=== PATIENT | female | born 1950 | race Caucasian/White ===

== ENCOUNTER → 2022-08-28 11:18 | Outpatient (BNVA) | payer OTHER, SELFPAY | PROVIDERS: Visit Provider Physician Assistant | DX: M25.511 Pain in right shoulder (principal) | CPT/HCPCS: 73030; 99204 ==

== ENCOUNTER → 2022-09-04 14:05 | Outpatient (BNVA) | payer OTHER, SELFPAY | PROVIDERS: Visit Provider Physician Assistant | DX: M25.511 Pain in right shoulder (principal) | CPT/HCPCS: 99213 ==

== ENCOUNTER 2023-02-24 09:22 | Emergency (ER) | payer MEDICARE, SELFPAY ==
--- NOTE | ~2023-02-24 | XR_ITS ---
EXAMINATION: XR HAND, LEFT CLINICAL INFORMATION: Swelling COMPARISON: None available. TECHNIQUE: PA, lateral, and oblique views of the left hand. FINDINGS: The bones are diffusely demineralized. The bones are intact. No fracture. There is marked degenerative change of the first carpometacarpal joint. There is degenerative change of the DIP joints of the fingers and the PIP joint of the little finger. There is mild degenerative change of the first metacarpophalangeal joint. There is calcification in the region of the fibrocartilage complex consistent with CPPD (calcium pyrophosphate deposition disease). XR/XR hand LT min 3V IMPRESSION: 1. Multiple sites of degenerative change. 2. Calcification in the region of the fibrocartilage complex consistent with CPPD.
[2023-02-24 09:39] VITALS: BP 150/85; PULSE 80; RESP 16; TEMP 36.7; O2SAT 99; BMI 35.3
--- NOTE | 2023-02-24 14:02 | ED_ITS ---
HPI - Extremity Problem General Chief complaint: Extremity Problem Stated complaint: l hand swelling and pain Time Seen by Provider: 02/24/23 13:46 Source: patient Mode of arrival: ambulatory Limitations: no limitations History of Present Illness HPI Narrative: this is a 72-year-old female presenting with atraumatic left wrist pain and swelling that started 4 days ago has been progressively worsening. Patient st ates it is painful with range of motion and palpation and better at rest. She states that she has tried icing the area and taking ibuprofen with little to no relief. Patient has no known history of gout or pseudogout. Denies trauma to the area. Denies numbness and tingling, fevers, chills, overlying skin changes, nausea, vomiting, abdominal pain, chest pain. Not on anticoagulation. No history of DVT or PE. Denies long travel. Surgeries. Related Data Previous Rx's Medication Instructions Recorded prednisone 20 mg tablet 40 mg (2 x 20 mg) PO DAILY 5 days 02/24/23 #10 tabs Allergies Allergy/AdvReac Type Severity Reaction Status Date / Time prednisone AdvReac Intermediate GI upset Verified 02/24/23 14:01 Review of Systems Review of Systems: Constitutional : No Weight loss, No Fever, No Chills, No Fatigue, No Malaise ENT/Mouth : No sore throat, No Rhinorrhea Eyes: No Eye Pain, No Swelling, No Redness Cardiovascular : No Chest Pain, No SOB, No Dyspnea on Exertion, No Orthopnea, No Edema, No Palpitations Respiratory : No Cough, No Sputum, No Wheezing Gastrointestinal : No Nausea, No Vomiting, No Diarrhea, No Constipation, No abdominal Pain, No Hematochezia, No Melena Genitourinary : No Dysuria, No Urinary Frequency, No Hematuria, Musculoskeletal : + joint pain, No Myalgias, + Joint Swelling Skin : No Skin Lesions, No rash Neuro : No Weakness, No Numbness, No Dizziness, No Headache Psych : No Anxiety/Panic, No Depression All other systems reviewed and are negative Yes all other systems are reviewed and are negative [facility] Past Medical History Attestation statement: The following information was validated with the patient. Source: old records reviewed and nursing notes reviewed Social History Social History Advance Directives: No Advance Directives Information Provided: Yes Physical Exam Vital Signs: Vital Signs: Last Vital Signs Temp 98.1 F 02/24/23 09:39 Pulse 80 02/24/23 09:39 Resp 16 02/24/23 09:39 BP 150/85 H 02/24/23 09:39 Pulse Ox 99 02/24/23 09:39 O2 Del Method Room Air 02/24/23 09:39 BMI result Body Mass Index 35.3 Vital signs stable Appearance: Alert.? Oriented X3.? No acute distress.? Head: Normocephalic, atraumatic, no step-offs or deformities Eyes: Pupils equal, round and reactive to light.? CVS: Normal heart rate and rhythm.? Pulses normal.? Respiratory: No respiratory distress.? Breath sounds normal.? Skin: Skin warm and dry.? Normal skin color.? Normal skin turgor.? Extremities: 5/5 strength to bilateral upper and lower extremities + ttp to l wrist throughout w/ edema overlying wrist and into l hand dorsal aspect > palmar aspect. 2+ radial pulses = and b/l. No wrist drop. Normal sensation distally. No overlying skin changes. 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 No motor deficit.? No sensory deficit. CN 2-12 intact Medical Decision Making Medical Decision Making [facility] Narrative: [id number] 72-year-old female presents with left wrist pain since worsening physical exam significant for 5/5 strength to bilateral upper and lower extremities + ttp to l wrist throughout w/ edema overlying wrist and into l hand dorsal aspect > palmar aspect. 2+ radial pulses = and b/l. No wrist drop. Normal sensation distally. No overlying skin changes. Normal hand [employer] however L<R (d/t pain) full rom to b/l wrist however L wrist w/ some discomfort most likely gout versus pseudogout versus inflammatory arthritis. Unlikely fracture, dislocation, threat to Cano, neurovascular compromise, arterial or venous occlusion, bursitis, tendonitis, cellulitis or septic joint Plan- xray ordered from triage showing multiple sites of degenerative changes supporting a likely inflammatory arthritis versus gout versus pseudogout. X-ray also showing calcification in the region of the fibrocartilage complex consistent with CPPD, again likely gout versus pseudogout with superimposed inflammatory arthritis. Explained to patient usually treat this with 5 days of high-dose prednisone, she tells me that she has taken prednisone in the past and it causes her some GI upset, and sometimes she feels like she is going crazy. However no respiratory complaints at this medication or signs of anaphylaxis. Will give her her 1st dose here make sure she tolerates it well and discharge her home with same. Differential Diagnosis Differential Diagnoses: The differential diagnosis associated with the presentation includes most likely gout versus pseudogout versus inflammatory arthritis. Unlikely fracture, dislocation, threat to Cano, neurovascular compromise, arterial or venous occlusion, bursitis, tendonitis, cellulitis or septic joint Admission/Observation Consideration of admission/observation: Escalation of care including admission/observation considered unlikely Independent Interpretation I performed an independent interpretation of an: Plain X-Ray ( XR/XR hand LT min 3V IMPRESSION: 1. Multiple sites of degenerative change. 2. Calcification in the region of the fibrocartilage complex consistent with CPPD.) Radiology Impression Discussion of test interpretation with radiology: I have reviewed the radiologist's reading. Core Measures AMI core measures followed: Yes Measure exclusions: not indicated Critical Care Time Critical Care Time Critical Care Time: No Discharge Plan Discharge Clinical Impression: Inflammatory arthritis, Pseudogout Patient Disposition: Home, Self-Care Instructions: Osteoarthritis (ED), Pseudogout (ED) Additional Instructions: Take your medications as prescribed. If you were prescribed antibiotics today, it is important that you take your medication to their entirety, do not skip any doses, do not finish them early. Follow-up with your primary care provider this week. Return to the emergency department with new or worsening symptoms. Such as fevers, chills, chest pain, shortness of breath, nausea, vomiting, dizziness, headache, vision changes, lethargy In case of emergency call 911 XR/XR hand LT min 3V IMPRESSION: 1. Multiple sites of degenerative change. 2. Calcification in the region of the fibrocartilage complex consistent with CPPD. Prescriptions: New prednisone 20 mg tablet 40 mg PO DAILY 5 Days Qty: 10 0RF Referrals: Radhames Wade MD [Primary Care Provider] - 2 days [facility] [Provider Group] - 1 week
--- NOTE | 2023-02-24 14:09 | PC.NURSE ---
Zoraida WEST authorizes to give prednisone to pt
[2023-02-24] MEDS: predniSONE 20 MG TABLET 40 MG PO (14:10)
== END 2023-02-24 14:40 | disposition home or self-care (01) ==
PROVIDERS: Emergency Provider Student in an Organized Health Care Education/Training Program; PCP Family Medicine
DX: M10.032 Idiopathic gout, left wrist (principal); M19.032 Primary osteoarthritis, left wrist; M19.031 Primary osteoarthritis, right wrist
CPT/HCPCS: 73130; 99282; 99283

== ENCOUNTER 2023-11-03 11:50 | Day surgery (SDC) | payer MEDICARE, SELFPAY ==
[2023-10-28 07:54] VITALS: BMI 36.7
--- NOTE | 2023-10-31 09:36 | HO.ANESPROP2 ---
Documented by User: Birgit Moon NP 10/31/23 09:37 HPI - Anesthesia Eval Consult details Narrative: 72yo F for Left Cataract Extraction IOL Insertion PCP cleared No prev cataract on record [facility] Past Medical History Medical History (Updated 10/28/23 @ 07:44 by Kasey Omalley RN) Eyelid retraction of both eyes Restless leg syndrome Pre-diabetes Panic attacks Osteoarthritis Obesity Depression Hyperlipidemia TIA (transient ischemic attack) Cerebral vascular accident Asthma Allergic rhinitis Surgical History Surgical History (Updated 10/28/23 @ 07:44 by Kasey Omalley RN) Hx of hysterectomy, total Hx of abdominal hysterectomy History of 2 sections History of repair of rotator cuff Hx laparoscopic cholecystectomy H/O colonoscopy Social History Social History Are you a primary career guidance counselor to a significant other at home: No Patient Tobacco Use Status: Never used Tobacco Use of substances other than those prescribed or required for medical reasons: No Advance Directives: No Advance Directives Information Provided: Yes Advance Directives on File: No Recently lost weight without trying: No Eating poorly because of decreased appetite: No Nutrition Risks: No Nutritional Risk Patient : No : No Meds Allergies Allergy/AdvReac Type Severity Reaction Status Date / Time prednisone AdvReac Intermediate GI upset Verified 02/24/23 14:01 naproxen AdvReac Vomiting Verified 10/28/23 07:53 Home Medications ?Medication ?Instructions ?Recorded ?Confirmed ?Last Taken ?Type acetaminophen 500 mg capsule 1,000 mg PO DAILY 10/28/23 10/28/23 Unknown History albuterol sulfate 90 mcg/actuation 1 puff inhalation Q4-5H PRN 10/28/23 10/28/23 Unknown History aerosol inhaler (Ventolin HFA) Shortness Of Breath Or Wheezing aspirin 81 mg tablet,delayed 81 mg PO DAILY 10/28/23 10/28/23 Unknown History release budesonide 180 mcg/actuation 1 inh inhalation BID PRN wheezing 10/28/23 10/28/23 Unknown History breath activated powder inhaler (Pulmicort Flexhaler) fluoxetine 40 mg capsule 40 mg PO DAILY 10/28/23 10/28/23 Unknown History lorazepam 1 mg tablet 1 mg PO DAILY PRN panic attack 10/28/23 10/28/23 Unknown History pravastatin 40 mg tablet 40 mg PO DAILY 10/28/23 10/28/23 Unknown History triamcinolone acetonide 55 mcg 1 spray intranasal DAILY 10/28/23 10/28/23 Unknown History nasal spray aerosol (Nasacort) Exam Height,Weight and Vital Signs: Height 4 ft 10.7 in Weight 81.5 kg Assessment and Plan Assessment Anesthesia Assessment: Chart Reviewed Documented by User: Luna Beavers MD 11/03/23 13:30 [facility] Past Medical History Medical History (Updated 10/28/23 @ 07:44 by Kasey Omalley RN) Eyelid retraction of both eyes Restless leg syndrome Pre-diabetes Panic attacks Osteoarthritis Obesity Depression Hyperlipidemia TIA (transient ischemic attack) Cerebral vascular accident Asthma Allergic rhinitis Family History Family history of problems with anesthesia: No Surgical History Surgical History (Updated 10/28/23 @ 07:44 by Kasey Omalley RN) Hx of hysterectomy, total Hx of abdominal hysterectomy History of 2 sections History of repair of rotator cuff Hx laparoscopic cholecystectomy H/O colonoscopy History of Problems with Anesthesia: No Social History Social History Are you a primary career guidance counselor to a significant other at home: No Patient Tobacco Use Status: Never used Tobacco Use of substances other than those prescribed or required for medical reasons: No Advance Directives: No Advance Directives Information Provided: Yes Advance Directives on File: No Recently lost weight without trying: No Eating poorly because of decreased appetite: No Nutrition Risks: No Nutritional Risk Patient : No : No Meds Allergies Allergy/AdvReac Type Severity Reaction Status Date / Time prednisone AdvReac Intermediate GI upset Verified 02/24/23 14:01 naproxen AdvReac Vomiting Verified 10/28/23 07:53 Home Medications ?Medication ?Instructions ?Recorded ?Confirmed ?Last Taken ?Type acetaminophen 500 mg capsule 1,000 mg PO DAILY 10/28/23 10/28/23 Unknown History albuterol sulfate 90 mcg/actuation 1 puff inhalation Q4-5H PRN 10/28/23 10/28/23 Unknown History aerosol inhaler (Ventolin HFA) Shortness Of Breath Or Wheezing aspirin 81 mg tablet,delayed 81 mg PO DAILY 10/28/23 10/28/23 Unknown History release budesonide 180 mcg/actuation 1 inh inhalation BID PRN wheezing 10/28/23 10/28/23 Unknown History breath activated powder inhaler (Pulmicort Flexhaler) fluoxetine 40 mg capsule 40 mg PO DAILY 10/28/23 10/28/23 Unknown History lorazepam 1 mg tablet 1 mg PO DAILY PRN panic attack 10/28/23 10/28/23 Unknown History pravastatin 40 mg tablet 40 mg PO DAILY 10/28/23 10/28/23 Unknown History triamcinolone acetonide 55 mcg 1 spray intranasal DAILY 10/28/23 10/28/23 Unknown History nasal spray aerosol (Nasacort) Exam Airway Mallampati Class: II (missing a couole teeth) TM Dist: >3cm Neck ROM: Full Heart: rrr Lungs: cta Assessment and Plan Assessment Anesthesia Assessment: Anesthesia Plan Discussed Final Anesthetic Review Family History of Problems with Anesthesia: No History of Problems with Anesthesia: No NPO: Yes ASA Class: II Final Preanesthetic Review: No Changes in Pt Med Stat, Meds/Allgs Chart Reviewed and Consent Obtained/Reviewed Patient Risk: Low Procedure Risk: Low Anesthetic Plan Anesthetic Plan: MAC: Disposition: Standard PACU
[2023-11-03] MEDS: Tetracaine HCl/PF 0.5% Oph Sol 4 ML DROPS 1 DROP EYE-LEFT (13:10)
[2023-11-03] MEDS: Cyclopentolate 1 % Ophth Sol 2 ML DRPBTL 1 DROP EYE-LEFT ×3 (13:11→13:27)
[2023-11-03] MEDS: Tropicamide 1 % Ophth Sol 3 ML BTL 1 DROP EYE-LEFT ×3 (13:13→13:29)
[2023-11-03] MEDS: Ketorolac Tromethamine 0.5% Op 10 ML DROPS 1 DROP EYE-LEFT ×3 (13:15→13:31)
[2023-11-03] MEDS: Phenylephrine HCL 2.5% Oph SoL 2 ML BOTTLE 1 DROP EYE-LEFT ×3 (13:17→13:33)
[2023-11-03] MEDS: Lactated Ringers 500 ML 50 ML IV (13:30)
--- NOTE | 2023-11-03 14:45 | MHC.SHP ---
Pre-Procedural Eval Section A - 24 Hr Update-Section A only Date of Service: 11/03/23 The patient is an INPATIENT: No Changes since office visit: No Cold of Flu in the past 2 weeks, No New Medical Problems, No Changes in Medication and No Patient answered all questions The patient has been examined within 24 hours of the surgical procedure. The History & Physical has been completed within 30 days and I have reviewed it.: Yes Section B - Complete if H&P > 30 days Chief Complaint: Age-related nuclear cataract, left eye Allergies: Allergies Allergy/AdvReac Type Severity Reaction Status Date / Time prednisone AdvReac Intermediate GI upset Verified 02/24/23 14:01 naproxen AdvReac Vomiting Verified 10/28/23 07:53 Plan Diagnosis/Plan: Unchanged I have reviewed the history and physical and performed a pertinent physical examination on my patient. No changes have occurred unless specified. Time Spent With Patient Time: Total time managing care of this patient today ____ minutes.
--- NOTE | 2023-11-03 14:45 | HO.PNOPHT ---
Ophthalmology Procedure Procedure Date of Service: 11/03/23 Ophthalmology Viscoelastic: Healon Duet Dual Pack Pro Ophthalmology Lenses: IOL Acrysof MP - [id number] (27) Procedure Notes: PREOPERATIVE DIAGNOSIS: Decreased visual acuity left eye secondary to cataract POSTOPERATIVE DIAGNOSIS: Same PROCEDURE: Left cataract extraction with intraocular lens insertion SURGEON: Peter Taylor M.D. ANESTHESIA: Topical/MAC ESTIMATED BLOOD LOSS: None COMPLICATIONS: None After obtaining informed consent, the patient was brought to the operation room suite and placed in the supine position. After adequate sedation per anesthesia, topical drops of Tetracaine were given to the left eye. The eye was then prepped and draped in the usual sterile fashion. The operating room microscope was then positioned over the operative eye and a lid speculum placed. A paracentesis was created. Viscoelastic was then instilled into the anterior chamber. A three plane incision was then created temporally, utilizing a 2.85 mm keratome. Capsulotomy forceps were then utilized to create a circular tear capsulotomy. Hydrodissection and hydrodelineation were carried out until adequate mobilization of the nucleus occurred. Phacoemulsification was then utilized to remove the dense central nucleus followed by removal of the cortical material utilizing the automated aspiration irrigation unit. Viscoat elastic was instilled into the posterior capsular bag followed by placement of a posterior chamber intraocular lens without difficulty. The residual Viscoat elastic was then removed utilizing the automated IA machine. The wound was check and found to be watertight. The patient tolerated the procedure well and the lid speculum was removed. Intracameral injection of Vigamox 0.1 mL followed by a subtenon injection of Kenalog-40 0.2 mL were administered. The patient will be seen in the a.m.
[2023-11-03 15:13] VITALS: BP 153/80; PULSE 73; RESP 18; TEMP 36.4; O2SAT 97
== END 2023-11-03 15:30 | disposition home or self-care (01) ==
PROVIDERS: PCP Family Medicine; Visit Provider Ophthalmology
PROC: (CPT 66985; principal; 2023-11-03 10:00)
DX: H25.12 Age-related nuclear cataract, left eye (principal); H52.4 Presbyopia; H35.033 Hypertensive retinopathy, bilateral; H04.123 Dry eye syndrome of bilateral lacrimal glands; Z79.899 Other long term (current) drug therapy; I10 Essential (primary) hypertension; E78.00 Pure hypercholesterolemia, unspecified; J45.909 Unspecified asthma, uncomplicated; F41.9 Anxiety disorder, unspecified; Z86.73 Personal history of transient ischemic attack (TIA), and cerebral infarction without residual deficits; Z88.4 Allergy status to anesthetic agent; Z88.6 Allergy status to analgesic agent; Z88.8 Allergy status to other drugs, medicaments and biological substances; Z79.51 Long term (current) use of inhaled steroids; H18.413 Arcus senilis, bilateral
CPT/HCPCS: 66984; J2250; J3010; J3301; V2630

== ENCOUNTER 2023-11-17 07:19 | Day surgery (SDC) | payer MEDICARE, SELFPAY ==
[2023-10-28 08:02] VITALS: BMI 36.7
--- NOTE | 2023-11-13 13:30 | HO.ANESPROP2 ---
Documented by User: Birgit Moon NP 11/13/23 13:32 HPI - Anesthesia Eval Consult details Narrative: 72yo F for Right Cataract Extraction IOL Insertion Left eye 11/03/23: Fent 50, Midaz 2 PMF[facility] Past Medical History Medical History Eyelid retraction of both eyes Restless leg syndrome Pre-diabetes Panic attacks Osteoarthritis Obesity Depression Hyperlipidemia TIA (transient ischemic attack) Cerebral vascular accident Asthma Allergic rhinitis Family History Family history of problems with anesthesia: No Surgical History Surgical History Hx of hysterectomy, total Hx of abdominal hysterectomy History of 2 sections History of repair of rotator cuff Hx laparoscopic cholecystectomy H/O colonoscopy History of Problems with Anesthesia: No Social History Social History Are you a primary director day care center to a significant other at home: No Patient Tobacco Use Status: Never used Tobacco Use of substances other than those prescribed or required for medical reasons: No Advance Directives: No Advance Directives Information Provided: Yes Advance Directives on File: No Recently lost weight without trying: No Eating poorly because of decreased appetite: No Nutrition Risks: No Nutritional Risk Patient : No : No Meds Allergies Allergy/AdvReac Type Severity Reaction Status Date / Time prednisone AdvReac Intermediate GI upset Verified 02/24/23 14:01 naproxen AdvReac Vomiting Verified 10/28/23 07:53 Home Medications ?Medication ?Instructions ?Recorded ?Confirmed ?Last Taken ?Type acetaminophen 500 mg capsule 1,000 mg PO DAILY 10/28/23 10/28/23 Unknown History albuterol sulfate 90 mcg/actuation 1 puff inhalation Q4-5H PRN 10/28/23 10/28/23 Unknown History aerosol inhaler (Ventolin HFA) Shortness Of Breath Or Wheezing aspirin 81 mg tablet,delayed 81 mg PO DAILY 10/28/23 10/28/23 11/17/23 History release budesonide 180 mcg/actuation 1 inh inhalation BID PRN wheezing 10/28/23 10/28/23 Unknown History breath activated powder inhaler (Pulmicort Flexhaler) fluoxetine 40 mg capsule 40 mg PO DAILY 10/28/23 10/28/23 11/17/23 History lorazepam 1 mg tablet 1 mg PO DAILY PRN panic attack 10/28/23 10/28/23 Unknown History pravastatin 40 mg tablet 40 mg PO DAILY 10/28/23 10/28/23 Unknown History triamcinolone acetonide 55 mcg 1 spray intranasal DAILY 10/28/23 10/28/23 Unknown History nasal spray aerosol (Nasacort) Exam Height,Weight and Vital Signs: Height 4 ft 10.7 in Weight 81.5 kg Assessment and Plan Assessment Anesthesia Assessment: Chart Reviewed Final Anesthetic Review Family History of Problems with Anesthesia: No History of Problems with Anesthesia: No Documented by User: Roxana Lombardi MD 11/17/23 08:56 [facility] Past Medical History Medical History Eyelid retraction of both eyes Restless leg syndrome Pre-diabetes Panic attacks Osteoarthritis Obesity Depression Hyperlipidemia TIA (transient ischemic attack) Cerebral vascular accident Asthma Allergic rhinitis Surgical History Surgical History Hx of hysterectomy, total Hx of abdominal hysterectomy History of 2 sections History of repair of rotator cuff Hx laparoscopic cholecystectomy H/O colonoscopy Social History Social History Are you a primary director day care center to a significant other at home: No Patient Tobacco Use Status: Never used Tobacco Use of substances other than those prescribed or required for medical reasons: No Advance Directives: No Advance Directives Information Provided: Yes Advance Directives on File: No Recently lost weight without trying: No Eating poorly because of decreased appetite: No Nutrition Risks: No Nutritional Risk Patient : No : No Meds Allergies Allergy/AdvReac Type Severity Reaction Status Date / Time prednisone AdvReac Intermediate GI upset Verified 02/24/23 14:01 naproxen AdvReac Vomiting Verified 10/28/23 07:53 Home Medications ?Medication ?Instructions ?Recorded ?Confirmed ?Last Taken ?Type acetaminophen 500 mg capsule 1,000 mg PO DAILY 10/28/23 10/28/23 Unknown History albuterol sulfate 90 mcg/actuation 1 puff inhalation Q4-5H PRN 10/28/23 10/28/23 Unknown History aerosol inhaler (Ventolin HFA) Shortness Of Breath Or Wheezing aspirin 81 mg tablet,delayed 81 mg PO DAILY 10/28/23 10/28/23 11/17/23 History release budesonide 180 mcg/actuation 1 inh inhalation BID PRN wheezing 10/28/23 10/28/23 Unknown History breath activated powder inhaler (Pulmicort Flexhaler) fluoxetine 40 mg capsule 40 mg PO DAILY 10/28/23 10/28/23 11/17/23 History lorazepam 1 mg tablet 1 mg PO DAILY PRN panic attack 10/28/23 10/28/23 Unknown History pravastatin 40 mg tablet 40 mg PO DAILY 10/28/23 10/28/23 Unknown History triamcinolone acetonide 55 mcg 1 spray intranasal DAILY 10/28/23 10/28/23 Unknown History nasal spray aerosol (Nasacort) Exam Airway Mallampati Class: II TM Dist: >3cm Neck ROM: Full Heart: RRR Lungs: CTA Assessment and Plan Assessment Anesthesia Assessment: Anesthesia Plan Discussed Final Anesthetic Review NPO: Yes ASA Class: III Final Preanesthetic Review: Meds/Allgs Chart Reviewed, Consent Obtained/Reviewed and Anes Risks/Benef Reviewed Patient Risk: Intermediate Procedure Risk: Low Anesthetic Plan Anesthetic Plan: MAC: Disposition: Standard PACU
[2023-11-17 08:37] VITALS: BP 159/71; PULSE 89; RESP 16; TEMP 36.8; O2SAT 96
[2023-11-17] MEDS: Tetracaine HCl/PF 0.5% Oph Sol 4 ML DROPS 1 DROP EYE-RIGHT (08:44)
[2023-11-17] MEDS: Cyclopentolate 1 % Ophth Sol 2 ML DRPBTL 1 DROP EYE-RIGHT ×3 (08:48→08:53)
[2023-11-17] MEDS: Lactated Ringers 500 ML 50 ML IV (08:48)
[2023-11-17] MEDS: Tropicamide 1 % Ophth Sol 3 ML BTL 1 DROP EYE-RIGHT ×3 (08:49→08:53)
[2023-11-17] MEDS: Phenylephrine HCL 2.5% Oph SoL 2 ML BOTTLE 1 DROP EYE-RIGHT ×3 (08:50→08:55)
[2023-11-17] MEDS: Ketorolac Tromethamine 0.5% Op 10 ML DROPS 1 DROP EYE-RIGHT ×3 (08:50→08:54)
--- NOTE | 2023-11-17 09:27 | MHC.SHP ---
Pre-Procedural Eval Section A - 24 Hr Update-Section A only Date of Service: 11/17/23 The patient is an INPATIENT: No Changes since office visit: No Cold of Flu in the past 2 weeks, No New Medical Problems, No Changes in Medication and No Patient answered all questions The patient has been examined within 24 hours of the surgical procedure. The History & Physical has been completed within 30 days and I have reviewed it.: Yes Section B - Complete if H&P > 30 days Chief Complaint: Age-related nuclear cataract, right eye Allergies: Allergies Allergy/AdvReac Type Severity Reaction Status Date / Time prednisone AdvReac Intermediate GI upset Verified 02/24/23 14:01 naproxen AdvReac Vomiting Verified 10/28/23 07:53 Plan Diagnosis/Plan: Unchanged I have reviewed the history and physical and performed a pertinent physical examination on my patient. No changes have occurred unless specified. Time Spent With Patient Time: Total time managing care of this patient today ____ minutes.
--- NOTE | 2023-11-17 09:28 | P.PCNO_ITS ---
Ophthalmology Procedure Procedure Date of Service: 11/17/23 Ophthalmology Viscoelastic: Healon Duet Dual Pack Pro Ophthalmology Lenses: IOL Acrysof MP - [id number] (26.5) Procedure Notes: PREOPERATIVE DIAGNOSIS: Decreased visual acuity right eye secondary to cataract POSTOPERATIVE DIAGNOSIS: Same PROCEDURE: Right cataract extraction with intraocular lens insertion SURGEON: Peter Taylor M.D. ANESTHESIA: Topical/MAC ESTIMATED BLOOD LOSS: None COMPLICATIONS: None After obtaining informed consent, the patient was brought to the operating room suite and placed in the supine position. After adequate sedation per anesthesia, topical drops of Tetracaine were given to the right eye. The eye was then prepped and draped in the usual sterile fashion. The operating room microscope was then positioned over the operative eye and a lid speculum placed. A paracentesis was created. Viscoelastic was then instilled into the anterior chamber. A three plane incision was then created temporally, utilizing a 2.85 mm keratome. Capsulotomy forceps were then utilized to create a circular tear capsulotomy. Hydrodissection and hydrodelineation were carried out until adequate mobilization of the nucleus occurred. Phacoemulsification was then utilized to remove the dense central nu cleus followed by removal of the cortical material utilizing the automated aspiration irrigation unit. Viscoelastic was instilled into the posterior capsular bag followed by placement of a posterior chamber intraocular lens without difficulty. The residual Viscoelastic was then removed utilizing the automated IA machine. The wound was checked and found to be watertight. The patient tolerated the procedure well and the lid speculum was removed. Intracameral injection of Vigamox 0.1 mL followed by a subtenon injection of Kenalog-40 0.2 mL were administered. The patient will be seen in the a.m.
[2023-11-17 09:55] VITALS: BP 129/69; PULSE 72; RESP 16; TEMP 36.6; O2SAT 97
== END 2023-11-17 10:08 | disposition home or self-care (01) ==
PROVIDERS: PCP Family Medicine; Visit Provider Ophthalmology
PROC: (CPT 66985; principal; 2023-11-17 09:40)
DX: H25.11 Age-related nuclear cataract, right eye (principal); I10 Essential (primary) hypertension; Z86.73 Personal history of transient ischemic attack (TIA), and cerebral infarction without residual deficits
CPT/HCPCS: 66984; J2250; J3010; J3301; V2630